=== PATIENT | male | born 1955 | race Caucasian/White ===

== ENCOUNTER 2017-06-03 09:12 | Outpatient (RCR) | payer OTHER | END 2017-06-03 09:58 | disposition home or self-care (01) | PROVIDERS: ATTEND Neurological Surgery | DX: M51.16 Intervertebral disc disorders with radiculopathy, lumbar region (principal) ==

== ENCOUNTER 2022-12-20 10:45 | Inpatient (IN) | payer MEDICARE ==
[~2022-12-20] VITALS: Ht 182 cm; Wt 129.0 kg
[2022-12-20] MEDS ORDERED: morphine INJ 10 MG/ML 1ML (SYR OR VIAL) IV STA (10:55)
--- NOTE | 2022-12-20 10:57 | ED Chest Pain ---
General Chief Complaint: Chest Pain Stated Complaint: CHEST PAINS History of Present Illness Date Seen by Provider: Dec 20, 2022 Time Seen by Provider: 10:50 Initial Comments 67-year-old male presents to the emergency department today for chest pain. Pain is in his left anterior chest and up into his left jaw associate with diaphoresis and nausea. 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 He had acute onset of chest pain and got immediately diaphoretic. He states he since had several bouts of nausea. No cardiac history. No recent illness. He does have high blood pressure, however cholesterol and takes metformin for diabetes mellitus. In route via EMS they report his EKG was sinus bradycardia. He was given 324 of aspirin chewable and nitroglycerin x1 which did not really help with his pain at all. On arrival he rates his pain 7/10 and is diaphoretic. All other systems reviewed and negative except documented per HPI. Voice recognition software was used to help create this chart Allergies and Home Medications Allergies Coded Allergies: morphine (Verified Allergy, Severe, HEART STOPS, 12/20/22) Patient Home Medication List Home Medication List Reviewed: Yes Acetaminophen (Tylenol Extra Strength) 500 Mg Tablet, 1,000 MG PO Q8H PRN for PAIN-MILD (1-4), (Reported) Entered as Reported by: FRANCO COSBY on 12/20/221507 Last Action: Held Albuterol Sulfate (Ventolin Hfa) 90 Mcg Hfa.aer.ad, 2 PUFF INH Q6H PRN for SHORT NESS OF BREATH, (Reported) Entered as Reported by: FRANCO COSBY on 12/20/221505 Last Action: Held Amoxicillin/Potassium Clav (Amox Tr-K Clv 875-125 mg Tab) 875 Mg-125 Mg Tablet, 1 EA PO BID, (Reported) Entered as Reported by: FRANCO COSBY on 12/20/22 150 Last Action: Reviewed Ascorbate Calcium (Vitamin C) 500 Mg Tablet, 500 MG PO DAILY, (Reported) Entered as Reported by: FRANCO COSBY on 12/20/22 150 Last Action: Held Budesonide (Budesonide) 0.5 Mg/2 Ml Ampul.neb, 2 ML NEB BID, (Reported) Entered as Reported by: FRANCO COSBY on 12/20/22 1530 Last Action: Reviewed Carisoprodol (Carisoprodol) 350 Mg Tablet, 350 MG PO DAILY PRN for MUSCLE SPASMS, (Reported) Entered as Reported by: FRANCO COSBY on 12/20/22 150 Last Action: Held Ergocalciferol (Vitamin D2) (Vitamin D2) 1,250 Mcg (71885 Unit) Capsule, 1,250 MCG PO EVERY 72 HOURS, (Reported) Entered as Reported by: FRANCO COSBY on 12/20/22 150 Last Action: Held Escitalopram Oxalate (Escitalopram Oxalate) 20 Mg Tablet, 20 MG PO DAILY, (Reported) Entered as Reported by: FRANCO COSBY on 12/20/221505 Last Action: Converted Formoterol Fumarate (Perforomist) 20 Mcg/2 Ml Vial.neb, 20 MCG IH BID, (Reported) Entered as Reported by: FRANCO COSBY on 12/21/22 101 Last Action: Reviewed Guaifenesin (Mucinex) 600 Mg Tab.er.12h, 600 MG PO Q12H PRN for CONGESTION, (Reported) Entered as Reported by: FRANCO COSBY on 12/20/221507 Last Action: Continued Loratadine (Claritin) 10 Mg Tablet, 10 MG PO DAILY PRN for ALLERGY SYMPTOMS, (Reported) Entered as Reported by: FRANCO COSBY on 12/20/221507 Last Action: Continued Meloxicam (Meloxicam) 7.5 Mg Tablet, 7.5 MG PO BID, (Reported) Entered as Reported by: FRANCO COSBY on 12/20/221505 Last Action: Continued Metformin HCl (Metformin HCl ER) 750 Mg Tab.er.24h, 750 MG PO DAILY, (Reported) Entered as Reported by: FRANCO COSBY on 12/20/221505 Last Action: Held Multivits,Ca,Min/Iron/FA/Lycop (Centrum Men's Tablet) 8 Mg Iron-200 Mcg-600 Mcg Tablet, 1 EACH PO DAILY, (Reported) Entered as Reported by: FRANCO COSBY on 12/20/221507 Last Action: Held Revefenacin (Yupelri) 175 Mcg/3 Ml Vial.neb, 175 MCG IH HS, (Reported) Entered as Reported by: FRANCO COSBY on 12/21/22 1015 Last Action: Reviewed Testosterone Cypionate (Testosterone Cypionate) 200 Mg/Ml Vial, 1 ML IM EVERY 10 DAYS, (Reported) Entered as Reported by: FRANCO COSBY on 12/20/22 1506 Last Action: Held Review of Systems Review of Systems Constitutional: weakness Physical Exam Vital Signs Vital Signs - First Documented 12/20/22 10:47 Temp 36.6 Pulse 64 Resp 20 B/P (MAP) 133/71 (91) Pulse Ox 96 O2 Delivery Room Air Capillary Refill : Height, Weight, BMI Height: '" Weight: lbs. oz. kg; BMI Method: General Appearance: Other (Diaphoresis, appears acutely ill) HEENT: Normal ENT Inspection, Pharynx Normal Neck: Full Range of Motion, Non Tender, Supple Respiratory: Chest Non Tender, Lungs Clear, Normal Breath Sounds, No Accessory Muscle Use, No Respiratory Distress Cardiovascular: No Murmur, Normal Peripheral Pulses, Bradycardia Gastrointestinal: Normal Bowel Sounds, No Organomegaly, No Pulsatile Mass, Non Tender, Soft Extremity: Normal Capillary Refill, Normal Inspection, Normal Range of Motion, Non Tender, No Calf Tenderness Neurologic/Psychiatric: Alert, Oriented x3, No Motor/Sensory Deficits Skin: Normal Color, Diaphoresis Critical Care Note Critical Care Total Time (minutes) 30 Progress/Results/Core Measures Results/Orders Lab Results Laboratory Tests Test 12/20/22 10:50 Range/Units White Blood Count 13.9 H 4.3-11.0 10^3/uL Red Blood Count 5.77 H 4.30-5.52 10^6/uL Hemoglobin 16.4 13.3-17.7 g/dL Hematocrit 49 40-54 % Mean Corpuscular Volume 85 80-99 fL Mean Corpuscular Hemoglobin 28 25-34 pg Mean Corpuscular Hemoglobin Concent 33 32-36 g/dL Red Cell Distribution Width 13.6 10.0-14.5 % Platelet Count 375 130-400 10^3/uL Mean Platelet Volume 9.1 9.0-12.2 fL Immature Granulocyte % (Auto) 2 % Neutrophils (%) (Auto) 61 42-75 % Lymphocytes (%) (Auto) 29 12-44 % Monocytes (%) (Auto) 5 0-12 % Eosinophils (%) (Auto) 2 0-10 % Basophils (%) (Auto) 2 0-10 % Neutrophils # (Auto) 8.5 H 1.8-7.8 10^3/uL Lymphocytes # (Auto) 4.0 1.0-4.0 10^3/uL Monocytes # (Auto) 0.7 0.0-1.0 10^3/uL Eosinophils # (Auto) 0.2 0.0-0.3 10^3/uL Basophils # (Auto) 0.3 H 0.0-0.1 10^3/uL Immature Granulocyte # (Auto) 0.3 H 0.0-0.1 10^3/uL Prothrombin Time 13.1 12.2-14.7 SEC INR Comment 1.0 0.8-1.4 Activated Partial Thromboplast Time 24 24-35 SEC Sodium Level 139 135-145 MMOL/L Potassium Level 3.9 3.6-5.0 MMOL/L Chloride Level 106 98-107 MMOL/L Carbon Dioxide Level 21 21-32 MMOL/L Anion Gap 12 5-14 MMOL/L Blood Urea Nitrogen 17 7-18 MG/DL Creatinine 0.91 0.60-1.30 MG/DL Estimat Glomerular Filtration Rate 92 BUN/Creatinine Ratio 19 Glucose Level 133 H 70-105 MG/DL Calcium Level 9.7 8.5-10.1 MG/DL Corrected Calcium 8.5-10.1 MG/DL Magnesium Level 2.0 1.6-2.4 MG/DL Total Bilirubin 0.4 0.1-1.0 MG/DL Aspartate Amino Transf (AST/SGOT) 22 5-34 U/L Alanine Aminotransferase (ALT/SGPT) 25 0-55 U/L Alkaline Phosphatase 58 40-136 U/L Myoglobin 42.7 10.0-92.0 NG/ML Troponin I < 0.028 <0.028 NG/ML Total Protein 7.4 6.4-8.2 GM/DL Albumin 4.6 H 3.2-4.5 GM/DL My Orders Orders - ANA LENZ DO Cbc With Automated Diff (12/20/22 10:55) Magnesium (12/20/22 10:55) Chest 1 View, Ap/Pa Only (12/20/22 10:55) Comprehensive Metabolic Panel (12/20/22 10:55) Myoglobin Serum (12/20/22 10:55) Protime With Inr (12/20/22 10:55) Partial Thromboplastin Time (12/20/22 10:55) O2 (12/20/22 10:55) Ed Iv/Invasive Line Start (12/20/22 10:55) Troponin I Toña (12/20/22 10:55) Heparin Injection (Heparin Injection) (12/20/22 11:00) Morphine Injection (Morphine Injection (12/20/22 10:55) Clopidogrel Tablet (Plavix Tablet) (12/20/22 11:00) Fentanyl Inj (Sublimaze Injection) (12/20/22 11:00) Vital Signs/I&O 12/20/22 10:47 Temp 36.6 Pulse 64 Resp 20 B/P (MAP) 133/71 (91) Pulse Ox 96 O2 Delivery Room Air Comment Sinus rhythm with a rate of 64 bpm. Prolonged QT, QTc with a left bundle branch block. ST elevations in lead III and aVF. Normal axis. Inferior STEMI Departure Communication (Admissions) 1055: attempted to c all Dr Toussaint, left voicemail to call back about a STEMI. medical laboratory technical officer has been activated. 1101: Dr Toussaint called back, notified of STEMI. Requests no further nitro as he was given prior by EMS. Also requests heparin bolus and 300po plavix. Patient taken to the Access Developer in stable but guarded condition Impression Primary Impression: STEMI (ST elevation myocardial infarction) Qualified Codes: I21.11 - ST elevation (STEMI) myocardial infarction involving right coronary artery Disposition: ADMITTED INPATIENT Condition: Stable Admissions Decision to Admit Reason: Admit from ER (General) Departure-Patient Inst. Referrals: JESE GORMAN MD (PCP) Primary Care Physician ANA LENZ DO Dec 20, 2022 10:57
[2022-12-20] MEDS ORDERED: CLOPIDOGREL 300 MG (PLAVIX) TABLET PO ONE ×2 (11:00→12:19)
[2022-12-20] MEDS ORDERED: fentaNYL INJ 100 MCG/2 ML AMP IVP ONE (11:00)
[2022-12-20 11:01] LABS: BASOPHILS # (AUTO) 0.3 10^3/uL (0.0-0.1); BASOPHILS % (AUTO) 2 % (0-10); EOSINOPHILS # (AUTO) 0.2 10^3/uL (0.0-0.3); EOSINOPHILS % (AUTO) 2 % (0-10); HEMATOCRIT 49 % (40-54); HEMOGLOBIN 16.4 g/dL (13.3-17.7); LYMPHOCYTES % (AUTO) 29 % (12-44); MEAN CORPUSCULAR HEMOGLOBIN 28 pg (25-34); MEAN CORPUSCULAR HGB CONC 33 g/dL (32-36); MEAN CORPUSCULAR VOLUME 85 fL (80-99); MEAN PLATELET VOLUME 9.1 fL (9.0-12.2); MONOCYTES # (AUTO) 0.7 10^3/uL (0.0-1.0); MONOCYTES % (AUTO) 5 % (0-12); NEUTROPHILS # (AUTO) 8.5 10^3/uL (1.8-7.8); NEUTROPHILS % (AUTO) 61 % (42-75); PLATELET COUNT 375 10^3/uL (130-400); WHITE BLOOD COUNT 13.9 10^3/uL (4.3-11.0)
[2022-12-20] MEDS ORDERED: LIDOCAINE 1% INJ 20 ML VIAL ONE (11:03)
[2022-12-20] MEDS ORDERED: MIDAZOLAM 5 MG/5 ML (VERSED) VIAL ONE (11:03)
[2022-12-20] MEDS ORDERED: HEParin 1000 UNIT/ML (10ML VIAL) FOR BOLUS ONE (11:03)
[2022-12-20] MEDS ORDERED: HEParin (CATH LAB) 2,000 ML IV ONE (11:03)
[2022-12-20] MEDS ORDERED: fentaNYL INJ 100 MCG/2 ML AMP ONE ×3 (11:03→14:53)
[2022-12-20] MEDS ORDERED: NS IV 1000 ML 1,000 ML ONE (11:04)
[2022-12-20] MEDS ORDERED: NITRO DRIP 25000 MCG/D5W 250 ML IV ONE (11:04)
[2022-12-20 11:08] LABS: PROTHROMBIN TIME PATIENT 13.1 SEC (12.2-14.7)
[2022-12-20 11:17] LABS: ALBUMIN 4.6 GM/DL (3.2-4.5); CHLORIDE 106 MMOL/L (98-107); POTASSIUM 3.9 MMOL/L (3.6-5.0); SODIUM 139 MMOL/L (135-145)
[2022-12-20 11:18] LABS: CALCIUM 9.7 MG/DL (8.5-10.1)
[2022-12-20 11:19] LABS: GLUCOSE 133 MG/DL (70-105); TOTAL PROTEIN 7.4 GM/DL (6.4-8.2)
[2022-12-20 11:20] LABS: CARBON DIOXIDE 21 MMOL/L (21-32)
--- NOTE | 2022-12-20 11:20 | Diagnostic Imaging Report ---
HISTORY: Chest pain TECHNIQUE: Frontal view of the chest. COMPARISON: None FINDINGS: Lung volumes are mildly large. No consolidation is seen. There is no pleural effusion or pneumothorax. The cardiac silhouette is upper normal in size. There are calcified lymph nodes from old granulomatous disease. IMPRESSION: 1. No acute pulmonary abnormality. Dictated by: Dictated on workstation # [id number]
[2022-12-20 11:21] LABS: BILIRUBIN,TOTAL 0.4 MG/DL (0.1-1.0)
[2022-12-20 11:22] LABS: ALKALINE PHOSPHATASE 58 U/L (40-136)
[2022-12-20 11:23] LABS: CREATININE SERUM 0.91 MG/DL (0.60-1.30); GFR ESTIMATED 92
[2022-12-20] MEDS ORDERED: EPTIFIBATIDE BOLUS 20 ML IV ONE (11:23)
[2022-12-20] MEDS ORDERED: EPTIFIBATIDE DRIP 100 ML IV ONE (11:23)
[2022-12-20 11:24] LABS: BUN/CREATININE RATIO 19
[2022-12-20 11:26] LABS: ALANINE AMINOTRANSFERASE 25 U/L (0-55)
[2022-12-20] MEDS ORDERED: NS (IVPB) 250 ML ONE (11:35)
[2022-12-20] MEDS ORDERED: niCARdipine IV PYXIS DRIP KIT = 50 MG X 2 VIALS ONE (11:35)
[2022-12-20] MEDS ORDERED: ACETAMINOPHEN 325 MG TABLET PO PRN (12:30)
[2022-12-20] MEDS ORDERED: PATIENT MAY USE OWN MEDS, ALL PO SCH (12:30)
--- NOTE | 2022-12-20 12:52 | Cardiac Cath Report ---
CARDIAC CATHETERIZATION DATE OF PROCEDURE: 12/20/22 INDICATION: Ac Inf Wall STEMI HISTORY: The patient is a 67 year old male DM II, htn, hyperlipidemia, and ABDOULAYE who presented with acute inf wall STEMI PROCEDURES PERFORMED: 1. Card cath and coronary angio 2. Primary PCI to RCA (PTCA followed by [facility]) PROCEDURE DESCRIPTION: After informed consent and in the fasting state, left heart catheterization was performed through the R femoral artery utilizing a 6 Beninese system by percutaneous approach. Due to significant tortuosity in the iliofemoral system, we used a 45 cm 6F sheath. PCI of RCA was performed first. Diagnostic coronary angio and left heart cath were then carried out. 6F JR 4 guide was used for PCI. Standard Brodie catheters were utilized for the diagnostic portion of the procedure. All catheters were exchanged over a guidewire. PCI to Dominant RCA Guide: 6F JR4 Wire: Choice Floppy Balloon: 2.0 x 30 mm in the distal RCA Stent: Skypoint 3.0 x 18 in the distal RCA Pre-intervention: 100% distal with LORENZO 0 flow Post-intervention: 0% residual with LORENZO 3 flow HEMODYNAMICS: LVEDP 15 mmHg, no significant pressure gradient on pull back across the aortic valve LV ANGIOGRAPHY: basal inferior hypokinesis, LVEF 50% CORONARY ANGIOGRAPHY: Cor calcium present Left main coronary artery: No significant obstructive disease Left anterior descending coronary artery: 50-60% mid LAD, 50-60% prox D1 Left circumflex coronary artery: Mild plaque Right coronary artery: Dominant. 100% distal with LORENZO 0 flow treated with Skypoint 3.0 x 18 YUMIKO deployed at 18 atmospheres with 0% residual and LORENZO 3 flow. Very distal RCA has 50% stenosis IMPRESSION: 1. CAD: LAD 50-60% mid LAD, 50-60% prox D1, mild plaque LCx, RCA 100% distal with LORENZO 0 flow treated with Skypoint 3.0 x 18 YUMIKO deployed at 18 atmospheres with 0% residual and LORENZO 3 flow; very distal RCA has 50% stenosis 2. Basal inferior hypokinesis, LVEF 50%, LVEDP 15 mmHg MENDEZ CALLEJAS MD FACP [facility] Dec 20, 2022 12:52
--- NOTE | 2022-12-20 13:03 | Cardiology History & Physical ---
HPI-Cardiology Cardiology H&P Date of Admission Primary Care Physician Admitting Physician: Elisa Toussaint MD, MA [facility] Attending Physician: Elisa Toussaint MD, MA [facility] Attending Physician Justin Zepeda MD Consulting Physician HPI 67 yo man with multiple cor risk factors (DM II, htn, hl) who presented with sudden onset of midsternal chest pain, severe, radiating to shoulders and neck, associated with diaphoresis and some shortness of breath, never experienced before, w/o aggravating or relieving factors, diagnosed in the ER as acute inf wall STEMI. We proceeded with emergency cath/PCI after having spoken with the patient Review of Systems-Cardiology Review of Systems Constitutional: No weight loss, No weight gain Eyes: No vision change Ears/Nose/Throat: No ear discharge, No nasal drainage, No recent hearing loss Respiratory: As described under HPI Cardiovascular: As described under HPI Gastrointestinal: No diarrhea, No nausea, No vomiting Genitourinary: No dysuria, No hematuria, No urine frequency changes Musculoskeletal: As describe under HPI; No back pain, No joint pain Skin: No rash, No ulcerations Psychiatric/Neurological: No seizure, No focal weakness, No syncope Hematologic: No bleeding abnormalities MZO-[id number]-Cgxple Hx Patient Social History Have you traveled recently?: No Alcohol Use?: No Past Medical History PMH As described under Assessment. Family Medical History Family Medical History: Does not report fam h/o premature CAD Allergies and Home Medications Allergies Coded Allergies: morphine (Verified Allergy, Severe, HEART STOPS, 12/20/22) Patient Home Medication List Home Medication List Reviewed: Yes Physical Exam-Cardiology Physical Exam Vital Signs/I&O 12/20/22 12/20/22 12/20/22 10:47 11:04 11:12 Temp 36.6 36.6 36.6 Pulse 64 53 Resp 20 20 B/P (MAP) 133/71 (91) 115/77 Pulse Ox 96 96 O2 Delivery Room Air Room Air Capillary Refill : Less Than 3 Seconds Constitutional: AAO x 3, well-developed, well-nourished HEENT: EOMI, hearing is well preserved; No xanthelasmas are seen Neck: carotid pulses are 2 + bilaterally, with good upstrokes Respiratory: No accessory muscle use; chest expansion is symmetric, chest is bilaterally symmetric, other (fair to good, bilateral air entry) Cardiovascular: regular rate-rhythm, S1 and S2, systolic murmur (soft EVAN at card base) Gastrointestinal: No tender; soft; No guarding, No rebound; audible bowel sounds Extremities: No clubbing, No cyanosis, No significant edema Neurologic/Psychiatric: oriented x 3, other (moves all limbs equally) Skin: No rash on exposed areas, No ulcerations on exposed areas Data Review Labs Laboratory Tests 12/20/22 10:50: White Blood Count 13.9H, Red Blood Count 5.77H, Hemoglobin 16.4, Hematocrit 49, Mean Corpuscular Volume 85, Mean Corpuscular Hemoglobin 28, Mean Corpuscular Hemoglobin Concent 33, Red Cell Distribution Width 13.6, Platelet Count 375, Mean Platelet Volume 9.1, Immature Granulocyte % (Auto) 2, Neutrophils (%) (Auto) 61, Lymphocytes (%) (Auto) 29, Monocytes (%) (Auto) 5, Eosinophils (%) (Auto) 2, Basophils (%) (Auto) 2, Neutrophils # (Auto) 8.5H, Lymphocytes # (Auto) 4.0, Monocytes # (Auto) 0.7, Eosinophils # (Auto) 0.2, Basophils # (Auto) 0.3H, Immature Granulocyte # (Auto) 0.3H, Prothrombin Time 13.1, INR Comment 1.0, Activated Partial Thromboplast Time 24, Sodium Level 139, Potassium Level 3.9, Chloride Level 106, Carbon Dioxide Level 21, Anion Gap 12, Blood Urea Nitrogen 17, Creatinine 0.91, Estimat Glomerular Filtration Rate 92, BUN/Creatinine Ratio 19, Glucose Level 133H, Calcium Level 9.7, Corrected Calcium , Magnesium Level 2.0, Total Bilirubin 0.4, Aspartate Amino Transf (AST/SGOT) 22, Alanine Aminotransferase (ALT/SGPT) 25, Alkaline Phosphatase 58, Myoglobin 42.7, Troponin I < 0.028, Total Protein 7.4, Albumin 4.6H Laboratory Tests 12/20/22 10:50 A/P-Cardiology Assessment/Admission Diagnosis Ac inf wall STEMI treated with primary PCI (see below) CAD - LAD 50-60% mid LAD, 50-60% prox D1, mild plaque LCx, RCA 100% distal with LORENZO 0 flow treated with Skypoint 3.0 x 18 YUMIKO deployed at 18 atmospheres with 0% residual and LORENZO 3 flow; very distal RCA has 50% stenosis - Basal inferior hypokinesis, LVEF 50%, LVEDP 15 mmHg DM II BMI approx 39 and obesity-hypovent and ABDOULAYE Hyperlipidemia Hypertension Admission Status: Inpatient Order (span 2 midnights) Reason for Inpatient Admission: Ac STEMI Discussion and Recomendations * DAPT * BB * MELO-inhibitor * Statin * Management of DM II and other medical issues by the Hospitalist service. I called Dr Solis and requested consult * Monitor labs * I discussed his CV issues with Mr Cardenas and his family Clinical Quality Measures AMI/AHF: ASA po Prior to arrival: Yes ELISA TOUSSAINT MD FACP [facility]AC [facility] Dec 20, 2022 13:03
[2022-12-20] MEDS ORDERED: meTOproloL SUCCINATE 50 MG (TOPROL XL) TAB PO NR (13:30)
[2022-12-20] MEDS ORDERED: lisINopril 5 MG (PRINIVIL) TABLET PO NR (13:30)
--- NOTE | 2022-12-20 14:09 | Tele-ICU Consult ---
History of Present Illness History of Present Illness Date Seen by Provider: Dec 20, 2022 Time Seen by Provider: 14:06 History of Present Illness eICU Critical Care Consult Service provided via interactive audio and video telecomJobinasecond E-CARE system to a patient admitted to ICU bed in [facility]. Patient is seen today due to persistent need of ICU care Available chart/ vitals / labs / Images reviewed Video assessment done using teleICU camera, rest of exam as per RN 67 yo M admitted with Inf Wall STEMI, cc of SOB, CP. diaphoresis, PMH DM, obetisy, ABDOULAYE/OHS, HLD, HTN Went to CCL has multiple vessel disease with 100% occlusion in RCA, had PCTA with YUMIKO Tropoin is normal, EKG shows LBBB Allergies and Home Medications Allergies Coded Allergies: morphine (Verified Allergy, Severe, HEART STOPS, 12/20/22) Past Medical/Social/Family Hx Patient Social History Tobacco Use?: No Smoking Status: Never a Smoker Use of E-Cig and/or Vaping dev: No E-Cig and/or Vaping Freq: Never a User Substance use?: No Alcohol Use?: No Pt stated abuse/neglect: No Immunizations Up To Date Influenza Vaccine Up-to-Date: Yes; Up-to-Date Current Status Advance Directives: No Communicates: Verbally Primary Language: Tongan Preferred Spoken Language: Tongan Is interpretation needed?: No Implanted or Applied Medical D: CPAP Review of Systems Constitutional: see HPI EENTM: see HPI Respiratory: see HPI Cardiovascular: see HPI Gastrointestinal: see HPI Genitourinary: see HPI Musculoskeletal: see HPI Skin: see HPI Psychiatric/Neurological: See HPI Focused Exam Height, Weight, BMI Height: '" Weight: lbs. oz. kg; 38.94 BMI Method: Exam Exam Patient acknowledged, consented, and participated in this virtual visit which was conducted using real time audio/video Vital Signs Date Time Temp Pulse Resp B/P (MAP) Pulse Ox O2 Delivery O2 Flow Rate FiO2 12/20/22 13:02 60 16 119/69 (86) 97 Room Air 12/20/22 13:00 Room Air 12/20/22 11:12 36.6 53 20 115/77 96 Room Air 12/20/22 11:04 36.6 12/20/22 10:47 36.6 64 20 133/71 (91) 96 Room Air Height & Weight Height: '" Weight: lbs. oz. kg; 38.94 BMI Method: General Appearance: Other (Diaphoresis, appears acutely ill) HEENT: Normal ENT Inspection, Pharynx Normal Neck: Full Range of Motion, Non Tender, Supple Respiratory: Chest Non Tender, Lungs Clear, Normal Breath Sounds, No Accessory Muscle Use, No Respiratory Distress Cardiovascular: No Murmur, Normal Peripheral Pulses, Bradycardia Capillary Refill: Less Than 3 Seconds Gastrointestinal: normal bowel sounds, non tender, soft Extremity: Normal Capillary Refill, Normal Inspection, Normal Range of Motion, Non Tender, No Calf Tenderness, No Pedal Edema Neurologic/Psychiatric: Alert, Oriented x3, No Motor/Sensory Deficits Skin: Normal Color, Diaphoresis Results Lab Laboratory Tests 12/20/22 10:50 Assessment/Plan Assessment/Plan Inf Wall STEMI, s/p PCTA, YUMIKO continue DPT, beta nelia, statin cardiology to follow ABDOULAYE, with Hb 16.4 most likely has severe ABDOULAYE with nocturnal hypoxemia and reactive polycythemia, Pt does wear BiPAP at night which makes be wonder if he stillis having oxygen desturations Critical Care: Critically Ill Patient Time spent with patient (mins): 25 VIRAL CRABTREE MD Dec 20, 2022 14:09
[2022-12-20] MEDS: NS IV 1000 ML 1,000 ML IV SCH (14:30)
[2022-12-20] MEDS ORDERED: ATROPINE INJECTION 1 MG/10 ML SYR (ABBOTT) ONE (14:57)
[2022-12-20] MEDS ORDERED: fentaNYL INJ 100 MCG/2 ML AMP IVP PRN (15:00)
[2022-12-20] MEDS ORDERED: PANTOPRAZOLE 40 MG (PROTONIX) VIAL IV NR (15:00)
[2022-12-20] MEDS ORDERED: AMOX1TAB12 PO (15:06)
[2022-12-20] MEDS ORDERED: ERGO1250 PO (15:06)
[2022-12-20] MEDS ORDERED: ESCI20TA39 PO (15:06)
[2022-12-20] MEDS ORDERED: MELO7.5T46 PO (15:06)
[2022-12-20] MEDS ORDERED: CARI350T27 PO (15:06)
[2022-12-20] MEDS ORDERED: ALBU18HF2 INH (15:06)
[2022-12-20] MEDS ORDERED: TEST200V21 IM (15:06)
[2022-12-20] MEDS ORDERED: METF750T45 PO (15:06)
[2022-12-20] MEDS ORDERED: ASCO-262 PO (15:08)
[2022-12-20] MEDS ORDERED: GUAI600T43 PO (15:08)
[2022-12-20] MEDS ORDERED: MULT-1030 PO (15:08)
[2022-12-20] MEDS ORDERED: LORA10TA76 PO (15:08)
[2022-12-20] MEDS ORDERED: ACET-2267 PO (15:08)
[2022-12-20] MEDS ORDERED: BUDE0.5A NEB (15:30)
[2022-12-20] MEDS: inSUlin ASPART (NovoLOG) 1 UNIT/0.01 ML (CHARGE PER UNIT) SC SCH ×2 (16:08→21:05)
[2022-12-20] MEDS: TICAGRELOR 90 MG TABLET (BRILINTA) PO SCH (21:08)
[2022-12-21] MEDS: NS IV 1000 ML 1,000 ML IV SCH ×2 (00:08→08:37)
[2022-12-21 05:45] LABS: BASOPHILS # (AUTO) 0.1 10^3/uL (0.0-0.1); BASOPHILS % (AUTO) 1 % (0-10); EOSINOPHILS # (AUTO) 0.1 10^3/uL (0.0-0.3); EOSINOPHILS % (AUTO) 1 % (0-10); HEMATOCRIT 45 % (40-54); HEMOGLOBIN 14.5 g/dL (13.3-17.7); LYMPHOCYTES # (AUTO) 1.5 10^3/uL (1.0-4.0); LYMPHOCYTES % (AUTO) 14 % (12-44); MEAN CORPUSCULAR HEMOGLOBIN 28 pg (25-34); MEAN CORPUSCULAR HGB CONC 33 g/dL (32-36); MEAN CORPUSCULAR VOLUME 85 fL (80-99); MEAN PLATELET VOLUME 9.2 fL (9.0-12.2); MONOCYTES # (AUTO) 0.6 10^3/uL (0.0-1.0); MONOCYTES % (AUTO) 5 % (0-12); NEUTROPHILS # (AUTO) 8.2 10^3/uL (1.8-7.8); NEUTROPHILS % (AUTO) 77 % (42-75); PLATELET COUNT 283 10^3/uL (130-400); WHITE BLOOD COUNT 10.6 10^3/uL (4.3-11.0)
[2022-12-21 06:00] LABS: ALBUMIN 3.7 GM/DL (3.2-4.5); BILIRUBIN,TOTAL 0.6 MG/DL (0.1-1.0); CALCIUM 8.5 MG/DL (8.5-10.1); CREATININE SERUM 0.74 MG/DL (0.60-1.30); MAGNESIUM 1.9 MG/DL (1.6-2.4); POTASSIUM 3.8 MMOL/L (3.6-5.0); TOTAL PROTEIN 5.8 GM/DL (6.4-8.2)
[2022-12-21] MEDS: inSUlin ASPART (NovoLOG) 1 UNIT/0.01 ML (CHARGE PER UNIT) SC SCH ×4 (06:20→20:40)
--- NOTE | 2022-12-21 08:22 | Progress Note - Cardiology ---
Cardiology SOAP Progress Note Subjective: Lying in bed Echocardiogram in progress No c/o CP, SOB, palpitations No c/o right groin discomfort Objective: I&O/Vital Signs 12/21/22 12/21/22 12/21/22 12/21/22 20:00 20:00 21:12 23:57 Temp 36.6 Pulse 64 58 Resp 12 14 B/P (MAP) 133/74 (93) 127/77 (94) Pulse Ox 97 97 97 98 O2 Delivery Room Air Room Air Room Air NIV CPAP 12/22/22 12/22/22 12/22/22 12/22/22 00:29 01:00 04:17 07:00 Temp 36.7 Pulse 60 62 56 Resp 16 14 B/P (MAP) 128/84 (99) 143/83 (103) Pulse Ox 96 96 94 O2 Delivery NIV CPAP NIV CPAP NIV CPAP 12/22/22 07:21 Pulse 51 12/22/22 00:00 Intake Total 1750 ml Output Total 1250 ml Balance 500 ml Side: right Groin site without hematoma: Yes Condition: DP/PT pulses palpable, extremity w/d/p Bruising: mild bruising Constitutional: AAO x 3, well-developed, well-nourished Respiratory: No accessory muscle use; chest expansion is symmetric, chest is bilaterally symmetric, other (fair to good, bilateral air entry) Cardiovascular: regular rate-rhythm, S1 and S2, systolic murmur (soft EVAN at card base) Gastrointestional: No tender; soft; No guarding, No rebound; audible bowel sounds Extremities: No clubbing, No cyanosis, No significant edema Neurologic/Psychiatric: oriented x 3, other (moves all limbs equally) Skin: No rash on exposed areas, No ulcerations on exposed areas Results/Procedures: Labs Laboratory Tests 12/21/22 11:50: Glucometer 96 12/21/22 20:39: Glucometer 102 12/22/22 05:02: White Blood Count 10.1, Red Blood Count 5.36, Hemoglobin 14.9, Hematocrit 46, Mean Corpuscular Volume 85, Mean Corpuscular Hemoglobin 28, Mean Corpuscular Hemoglobin Concent 33, Red Cell Distribution Width 13.7, Platelet Count 280, Mean Platelet Volume 9.1, Sodium Level 138, Potassium Level 3.7, Chloride Level 109H, Carbon Dioxide Level 21, Anion Gap 8, Blood Urea Nitrogen 16, Creatinine 0.77, Estimat Glomerular Filtration Rate 98, BUN/Creatinine Ratio 21, Glucose Level 98, Calcium Level 8.8 Microbiology 12/20/22 MRSA Screen - Final, Complete MRSA not isolated A/P: Assessment: Ac inf wall STEMI treated with primary PCI (see below) CAD - LAD 50-60% mid LAD, 50-60% prox D1, mild plaque LCx, RCA 100% distal with LORENZO 0 flow treated with Skypoint 3.0 x 18 YUMIKO deployed at 18 atmospheres with 0% residual and LORENZO 3 flow; very distal RCA has 50% stenosis - Basal inferior hypokinesis, LVEF 50%, LVEDP 15 mmHg DM II BMI approx 39 and obesity-hypovent and ABDOULAYE Hyperlipidemia - statin tx Hypertension Plan: * Continue DAPT, BB, MELO-inhibitor and Statin * Management of DM II and other medical issues by the Hospitalist service - Dr. Solis consulted * Monitor labs * Echocardiogram in progress * Increase activity today Clinical Quality Measures AMI/AHF: ASA po Prior to arrival: Yes ELO RODRIGUEZ Dec 21, 2022 08:22
[2022-12-21] MEDS: PANTOPRAZOLE 40 MG (PROTONIX) TAB PO SCH (08:39)
[2022-12-21] MEDS: lisINopril 5 MG (PRINIVIL) TABLET PO SCH (08:39)
[2022-12-21] MEDS: meTOproloL SUCCINATE 50 MG (TOPROL XL) TAB PO SCH (08:39)
[2022-12-21] MEDS: TICAGRELOR 90 MG TABLET (BRILINTA) PO SCH ×2 (08:39→20:27)
[2022-12-21] MEDS: ASPIRIN 81 MG CHEW (CHILDREN'S ASA) PO SCH (08:39)
[2022-12-21] MEDS ORDERED: guaiFENesin (MUCINEX) 600 MG TAB PO PRN (09:45)
[2022-12-21] MEDS ORDERED: LORATADINE (CLARITIN) 10 MG TAB PO PRN (09:45)
[2022-12-21] MEDS ORDERED: REVE175V IH (10:15)
[2022-12-21] MEDS ORDERED: FORM20VI IH (10:15)
--- NOTE | 2022-12-21 15:25 | Consultation - Hospitalist ---
HPI History of Present Illness: HPI/Chief Complaint Paul Cardenas is a 67 year old male with PMH HTN, T2DM, HLD, obesity, who presented with chest pain and was admitted with STEMI. The pain was radiating to his jaw. He was diaphoretic and nauseous. Cardiology performed emergent left heart catheterization and he was found to have 100% blockage of the right coronary artery and a stent was placed. Upon my exam, he is having no further symptoms. He denies chest pain. He denies shortness of breath. He has been up walking. He has been eating and drinking. He has no complaints. Source: patient Exam Limitations: no limitations Date Seen 12/21/22 Attending Physician Justin Zepeda MD PCP Admitting Physician: Elisa Toussaint MD [facility] Attending Physician: Elisa Toussaint MD [facility] Referring Physician Date of Admission Dec 20, 2022 at 12:16 Home Medications & Allergies Home Medications Reviewed patient Home Medication Reconciliation performed by pharmacy medication reconciliations cardiology technician and/or nursing. Patients Allergies have been reviewed. Allergies Allergies Coded Allergies morphine (Verified Allergy, Severe, HEART STOPS, 12/20/22) Past Ozpsado-Liyjec-Oupuao Hx Patient Social History Tobacco Use?: No Smoking Status: Never a Smoker Use of E-Cig and/or Vaping dev: No Use of E-Cig and/or Vaping Rufino: Never a User Substance use?: No Alcohol Use?: No Pt feels they are or have been: No Immunizations Up To Date Date of Influenza Vaccine: Jul 22, 2022 Current Status Advance Directives: No Communicates: Verbally Primary Language: Egyptian Preferred Spoken Language: Egyptian Is interpretation needed?: No Implanted or Applied Medical D: CPAP Past Medical History Coronary Artery Disease, High Cholesterol, Hypertension Diabetes, Non-Insulin dep Family Medical History No Pertinent Family Hx Review of Systems Constitutional: diaphoresis Respiratory: no symptoms reported Cardiovascular: chest pain Gastrointestinal: nausea Physical Exam Physical Exam Vital Signs Vital Signs - First Documented 12/20/22 10:47 Temp 36.6 Pulse 64 Resp 20 B/P (MAP) 133/71 (91) Pulse Ox 96 O2 Delivery Room Air Capillary Refill : Less Than 3 Seconds Height, Weight, BMI Height: '" Weight: lbs. oz. kg; 38.94 BMI Method: General Appearance: No Apparent Distress, Obese, Other (Diaphoresis, appears acutely ill) HEENT: PERRL/EOMI, Pharynx Normal Neck: Normal Inspection, Supple Respiratory: Lungs Clear, Normal Breath Sounds, No Respiratory Distress Cardiovascular: Regular Rate, Rhythm, No Edema, No Murmur Gastrointestinal: Normal Bowel Sounds, Non Tender, Soft Extremity: Normal Inspection, Non Tender, No Pedal Edema Neurologic/Psychiatric: Alert, Oriented x3, No Motor/Sensory Deficits, Normal Mood/Affect Skin: Normal Color, Warm/Dry Results Results/Procedures Labs Laboratory Tests 12/20/22 10:50 12/21/22 04:52 12/21/22 05:03 Patient resulted labs reviewed. Imaging: Reviewed Imaging Report Assessment/Plan Assessment and Plan Assess & Plan/Chief Complaint STEMI CAD HTN HLD Obesity T2DM Cardiology primary s/p left heart cath with stent to RCA 12/20 ASA and Brilinta Statin Lisinopril Toprol Sliding scale insulin Critical Care Critically Ill Patient Diagnosis/Problems Diagnosis/Problems (1) STEMI (ST elevation myocardial infarction) Status: Acute Qualifiers: Involved coronary artery: right coronary artery Qualified Codes: I21.11 - ST elevation (STEMI) myocardial infarction involving right coronary artery (2) CAD (coronary artery disease) Status: Acute (3) T2DM (type 2 diabetes mellitus) Status: Acute (4) HTN (hypertension) Status: Acute (5) HLD (hyperlipidemia) Status: Acute (6) Obesity Status: Acute Clinical Quality Measures AMI/AHF: ASA po Prior to arrival: Yes ARANZA TUCKER MD Dec 21, 2022 15:25
[2022-12-21] MEDS ORDERED: ENOXAPARIN 40 MG/0.4 ML (LOVENOX) SYR SC SCH (17:00)
--- NOTE | 2022-12-21 17:09 | Progress Note - Cardiology ---
Cardiology SOAP Progress Note Subjective: No cp or palp or syncope No shortness of breath at rest Gen malaise is improving No focal weakness No n/v/d No leg or groin discomfort Objective: I&O/Vital Signs 12/21/22 12/21/22 12/21/22 12/21/22 06:00 07:00 07:00 08:00 Pulse 63 71 71 Resp 8 9 B/P (MAP) 117/69 (85) 141/81 (101) Pulse Ox 99 98 94 O2 Delivery NIV CPAP NIV CPAP Room Air 12/21/22 12/21/22 12/21/22 12/21/22 08:00 09:00 10:00 11:00 Pulse 68 65 60 59 Resp 19 18 15 16 B/P (MAP) 130/81 (97) 139/84 (102) 127/93 (104) Pulse Ox 96 95 95 95 O2 Delivery NIV CPAP Room Air Room Air Room Air 12/21/22 12/21/22 12/21/22 12/21/22 11:48 12:00 12:20 13:00 Pulse 61 67 71 Resp 23 14 B/P (MAP) 157/91 (113) 127/100 (109) Pulse Ox 94 96 95 O2 Delivery Room Air Room Air Room Air 12/21/22 12/21/22 12/21/22 14:00 15:00 16:00 Pulse 64 59 64 Resp 14 19 21 B/P (MAP) 130/76 (94) 127/73 (91) 125/76 (92) Pulse Ox 92 93 95 O2 Delivery Room Air Room Air Room Air 12/21/22 00:00 Intake Total 840 ml Output Total 950 ml Balance -110 ml Side: right Groin site without hematoma: Yes Condition: DP/PT pulses palpable, extremity w/d/p Bruising: mild bruising Constitutional: AAO x 3, well-developed, well-nourished Respiratory: No accessory muscle use; chest expansion is symmetric, chest is bilaterally symmetric, other (fair to good, bilateral air entry) Cardiovascular: regular rate-rhythm, S1 and S2, systolic murmur (soft EVAN at card base) Gastrointestional: No tender; soft; No guarding, No rebound; audible bowel sounds Extremities: No clubbing, No cyanosis, No significant edema Neurologic/Psychiatric: oriented x 3, other (moves all limbs equally) Skin: No rash on exposed areas, No ulcerations on exposed areas Results/Procedures: Labs Laboratory Tests 12/20/22 20:52: Glucometer 128H 12/21/22 04:52: Sodium Level 137, Potassium Level 3.8, Chloride Level 108H, Carbon Dioxide Level 19L, Anion Gap 10, Blood Urea Nitrogen 14, Creatinine 0.74, Estimat Glomerular Filtration Rate 99, BUN/Creatinine Ratio 19, Glucose Level 100, Calcium Level 8.5, Corrected Calcium 8.7, Magnesium Level 1.9, Total Bilirubin 0.6, Aspartate Amino Transf (AST/SGOT) 26, Alanine Aminotransferase (ALT/SGPT) 20, Alkaline Phosphatase 46, Total Protein 5.8L, Albumin 3.7, Triglycerides Level 94, Cholesterol Level 150, LDL Cholesterol Direct 106, VLDL Cholesterol 19, HDL Cholesterol 29L, Thyroid Stimulating Hormone (TSH) 1.21 12/21/22 05:03: White Blood Count 10.6, Red Blood Count 5.21, Hemoglobin 14.5, Hematocrit 45, Mean Corpuscular Volume 85, Mean Corpuscular Hemoglobin 28, Mean Corpuscular Hemoglobin Concent 33, Red Cell Distribution Width 13.9, Platelet Count 283, Mean Platelet Volume 9.2, Immature Granulocyte % (Auto) 2, Neutrophils (%) (Auto) 77H, Lymphocytes (%) (Auto) 14, Monocytes (%) (Auto) 5, Eosinophils (%) (Auto) 1, Basophils (%) (Auto) 1, Neutrophils # (Auto) 8.2H, Lymphocytes # (Auto) 1.5, Monocytes # (Auto) 0.6, Eosinophils # (Auto) 0.1, Basophils # (Auto) 0.1, Immature Granulocyte # (Auto) 0.2H 12/21/22 11:50: Glucometer 96 Microbiology 12/20/22 MRSA Screen - Final, Complete MRSA not isolated Laboratory Tests 12/20/22 10:50 12/21/22 04:52 12/21/22 05:03 A/P: Assessment: Ac inf wall STEMI treated with primary PCI (see below) CAD - LAD 50-60% mid LAD, 50-60% prox D1, mild plaque LCx, RCA 100% distal with LORENZO 0 flow treated with Skypoint 3.0 x 18 YUMIKO deployed at 18 atmospheres with 0% residual and LORENZO 3 flow; very distal RCA has 50% stenosis - Basal inferior hypokinesis, LVEF 50%, LVEDP 15 mmHg DM II BMI approx 39 and obesity-hypovent and ABDOULAYE Hyperlipidemia - statin tx Hypertension Plan: * Continue DAPT, BB, MELO-inhibitor and Statin * Management of DM II and other medical issues by the Hospitalist service - Dr. Solis consulted * Monitor labs * Increase activity today * I discussed in detail with him his cath findings, interventions undertaken, and future treatment plan; also reviewed risk factor mod Clinical Quality Measures AMI/AHF: ASA po Prior to arrival: Yes MENDEZ CALLEJAS MD FACP FAC CCDS Dec 21, 2022 17:09
[2022-12-21] MEDS: MELOXICAM 7.5 MG (MOBIC) TABLET PO SCH (20:27)
[2022-12-21] MEDS ORDERED: RT-BUDESONIDE NEBS 0.5 MG/2ML (PULMICORT) AMP IH SCH (21:00)
[2022-12-22 05:14] LABS: HEMATOCRIT 46 % (40-54); HEMOGLOBIN 14.9 g/dL (13.3-17.7); MEAN CORPUSCULAR HEMOGLOBIN 28 pg (25-34); MEAN CORPUSCULAR HGB CONC 33 g/dL (32-36); MEAN CORPUSCULAR VOLUME 85 fL (80-99); MEAN PLATELET VOLUME 9.1 fL (9.0-12.2); PLATELET COUNT 280 10^3/uL (130-400); WHITE BLOOD COUNT 10.1 10^3/uL (4.3-11.0)
[2022-12-22 05:26] LABS: POTASSIUM 3.7 MMOL/L (3.6-5.0)
[2022-12-22 05:27] LABS: CALCIUM 8.8 MG/DL (8.5-10.1)
[2022-12-22 05:32] LABS: CREATININE SERUM 0.77 MG/DL (0.60-1.30)
[2022-12-22] MEDS: inSUlin ASPART (NovoLOG) 1 UNIT/0.01 ML (CHARGE PER UNIT) SC SCH (05:46)
[2022-12-22] MEDS: ASPIRIN 81 MG CHEW (CHILDREN'S ASA) PO SCH (08:18)
[2022-12-22] MEDS: MELOXICAM 7.5 MG (MOBIC) TABLET PO SCH (08:19)
[2022-12-22] MEDS: lisINopril 5 MG (PRINIVIL) TABLET PO SCH (08:19)
[2022-12-22] MEDS: TICAGRELOR 90 MG TABLET (BRILINTA) PO SCH (08:19)
[2022-12-22] MEDS: PANTOPRAZOLE 40 MG (PROTONIX) TAB PO SCH (08:19)
[2022-12-22] MEDS: meTOproloL SUCCINATE 50 MG (TOPROL XL) TAB PO SCH (08:19)
--- NOTE | 2022-12-22 08:52 | Progress Note - Cardiology ---
Cardiology SOAP Progress Note Subjective: Sitting up in bed He has been up walking and is able to do so without c/o No c/o CP, SOB, palpitations, syncope, near syncope No c/o right groin discomfort No c/o n/v/d Wants to go home Objective: I&O/Vital Signs Side: right Groin site without hematoma: Yes Condition: DP/PT pulses palpable, extremity w/d/p Bruising: mild bruising Constitutional: AAO x 3, well-developed, well-nourished Respiratory: No accessory muscle use; chest expansion is symmetric, chest is bilaterally symmetric, other (fair to good, bilateral air entry) Cardiovascular: regular rate-rhythm, S1 and S2, systolic murmur (soft EVAN at card base) Gastrointestional: No tender; soft; No guarding, No rebound; audible bowel sounds Extremities: No clubbing, No cyanosis, No significant edema Neurologic/Psychiatric: oriented x 3, other (moves all limbs equally) Skin: No rash on exposed areas, No ulcerations on exposed areas Results/Procedures: Labs Microbiology 12/20/22 MRSA Screen - Final, Complete MRSA not isolated A/P: Assessment: Ac inf wall STEMI treated with primary PCI (see below) CAD - LAD 50-60% mid LAD, 50-60% prox D1, mild plaque LCx, RCA 100% distal with LORENZO 0 flow treated with Skypoint 3.0 x 18 YUMIKO deployed at 18 atmospheres with 0% residual and LORENZO 3 flow; very distal RCA has 50% stenosis - Basal inferior hypokinesis, LVEF 50%, LVEDP 15 mmHg DM II BMI approx 39 and obesity-hypovent and ABDOULAYE Hyperlipidemia - statin tx Hypertension Plan: * Continue DAPT, BB, MELO-inhibitor and Statin * Management of DM II and other medical issues has been by the Hospitalist service * I discussed in detail with him his cath findings, interventions undertaken, and future treatment plan; also reviewed risk factor mod * Ok to discharge home today on current medication regimen * Out pt f/u in 1-2 weeks Clinical Quality Measures AMI/AHF: ASA po Prior to arrival: Yes ELO RODRIGUEZ Dec 22, 2022 08:52
[2022-12-22] MEDS ORDERED: LISI5TAB20 PO (08:56)
[2022-12-22] MEDS ORDERED: TICA90TA PO (08:56)
[2022-12-22] MEDS ORDERED: ATOR80TA76 PO (08:56)
[2022-12-22] MEDS ORDERED: ASPI81TA64 PO (08:56)
[2022-12-22] MEDS ORDERED: PANT40TA52 PO (08:56)
[2022-12-22] MEDS ORDERED: METO50TA7 PO (08:56)
--- NOTE | 2022-12-22 08:57 | Discharge Inst-Cardiology ---
Discharge Inst-Cardiac Discharge Medications New Medications: Aspirin (Children's Aspirin) 81 Mg Tab.chew 81 MG PO DAILY, #60 TAB 3 Refills Atorvastatin Calcium (Atorvastatin Calcium) 80 Mg Tablet 80 MG PO HS, #30 TAB 5 Refills Lisinopril (Lisinopril) 5 Mg Tablet 5 MG PO DAILY, #30 TAB 5 Refills Metoprolol Succinate (Metoprolol Succinate) 50 Mg Tab.er.24h 50 MG PO DAILY, #30 TAB 5 Refills Pantoprazole Sodium (Pantoprazole Sodium) 40 Mg Tablet.dr 40 MG PO DAILY, #30 TAB 2 Refills Ticagrelor (Brilinta) 90 Mg Tablet 90 MG PO BID, #60 TAB 5 Refills Continued Medications: Acetaminophen (Tylenol Extra Strength) 500 Mg Tablet 1000 MG PO Q8H PRN for PAIN-MILD (1-4), TAB Albuterol Sulfate (Ventolin Hfa) 90 Mcg Hfa.aer.ad 2 PUFF INH Q6H PRN for SHORTNESS OF BREATH, EA Ascorbate Calcium (Vitamin C) 500 Mg Tablet 500 MG PO DAILY, TAB Budesonide (Budesonide) 0.5 Mg/2 Ml Ampul.neb 2 ML NEB BID, EA LAST FILLED JUN 2022 FOR A 30 DAY SUPPLY Carisoprodol (Carisoprodol) 350 Mg Tablet 350 MG PO DAILY PRN for MUSCLE SPASMS, TAB Ergocalciferol (Vitamin D2) (Vitamin D2) 1,250 Mcg (25944 Unit) Capsule 1250 MCG PO EVERY 72 HOURS, CAP Escitalopram Oxalate (Escitalopram Oxalate) 20 Mg Tablet 20 MG PO DAILY, TAB Formoterol Fumarate (Perforomist) 20 Mcg/2 Ml Vial.neb 20 MCG IH BID, EA LAST FILLED JUN 2022 FOR A 30 DAY SUPPLY Guaifenesin (Mucinex) 600 Mg Tab.er.12h 600 MG PO Q12H PRN for CONGESTION, TAB Loratadine (Claritin) 10 Mg Tablet 10 MG PO DAILY PRN for ALLERGY SYMPTOMS, TAB Meloxicam (Meloxicam) 7.5 Mg Tablet 7.5 MG PO BID, TAB Metformin HCl (Metformin HCl ER) 750 Mg Tab.er.24h 750 MG PO DAILY, TAB Multivits,Ca,Min/Iron/FA/Lycop (Centrum Men's Tablet) 8 Mg Iron-200 Mcg-600 Mcg Tablet 1 EACH PO DAILY, TAB Revefenacin (Yupelri) 175 Mcg/3 Ml Vial.neb 175 MCG IH HS, EA LAST FILLED JUN 2022 FOR A 30 DAY SUPPLY Testosterone Cypionate (Testosterone Cypionate) 200 Mg/Ml Vial 1 ML IM EVERY 10 DAYS, ML Discontinued Medications: Amoxicillin/Potassium Clav (Amox Tr-K Clv 875-125 mg Tab) 875 Mg-125 Mg Tablet 1 EA PO BID, TAB FILLED 12-17-2022 #20/10 DAY SUPPLY New, Converted or Re-Newed RX: Transmitted to Pharmacy Patient Instructions Patient Instructions: Please schedule follow up appointment to see Dr. Toussaint in 1-2 weeks Ok to restart Metformin ELO RODRIGUEZ Dec 22, 2022 08:57
[2022-12-22] MEDS ORDERED: RT-BUDESONIDE NEBS 0.5 MG/2ML (PULMICORT) AMP IH SCH (09:00)
[2022-12-22] MEDS ORDERED: NON-FORMULARY MEDICATION 1 EA EA (Escitalopram Oxalate 20 MG) PO SCH (09:00)
--- NOTE | 2022-12-22 10:07 | Progress Note - Hospitalist ---
Subjective HPI/CC On Admission Date Seen by Provider: Dec 22, 2022 Time Seen by Provider: 08:50 Paul Cardenas is a 67 year old male with PMH HTN, T2DM, HLD, obesity, who presented with chest pain and was admitted with STEMI. The pain was radiating to his jaw. He was diaphoretic and nauseous. Cardiology performed emergent left heart catheterization and he was found to have 100% blockage of the right coronary artery and a stent was placed. Upon my exam, he is having no further symptoms. He denies chest pain. He denies shortness of breath. He has been up walking. He has been eating and drinking. He has no complaints. Subjective/Events-last exam He is feeling well. He denies pain. He denies shortness of breath. He has been walking. He has been eating and drinking. He has no complaints. Objective Exam Vital Signs Vital Signs Date Time Temp Pulse Resp B/P (MAP) Pulse Ox O2 Delivery O2 Flow Rate FiO2 12/22/22 08:00 36.3 62 14 143/83 (103) 97 Room Air Capillary Refill : Less Than 3 Seconds General Appearance: No Apparent Distress, Obese Respiratory: Lungs Clear, No Respiratory Distress Cardiovascular: Regular Rate, Rhythm, No Murmur Gastrointestinal: Normal Bowel Sounds, Soft Extremity: Normal Inspection, No Pedal Edema Neurologic/Psychiatric: Alert, No Motor/Sensory Deficits, Normal Mood/Affect Skin: Normal Color, Warm/Dry Results/Procedures Lab Laboratory Tests 12/22/22 05:02 Patient resulted labs reviewed. Imaging: Reviewed Imaging Report Assessment/Plan Assessment and Plan Assess & Plan/Chief Complaint STEMI CAD HTN HLD Obesity T2DM s/p left heart cath with stent to RCA 12/20 ASA, Brilinta, statin, Lisinopril, Toprol Resume home meds Discharging home today Diagnosis/Problems Diagnosis/Problems (1) STEMI (ST elevation myocardial infarction) Status: Acute Qualifiers: Involved coronary artery: right coronary artery Qualified Codes: I21.11 - ST elevation (STEMI) myocardial infarction involving right coronary artery (2) CAD (coronary artery disease) Status: Acute (3) T2DM (type 2 diabetes mellitus) Status: Acute (4) HTN (hypertension) Status: Acute (5) HLD (hyperlipidemia) Status: Acute (6) Obesity Status: Acute Clinical Quality Measures AMI/AHF: ASA po Prior to arrival: Yes ARANZA TUCKER MD Dec 22, 2022 10:07
[2022-12-22 10:31] VITALS: BP 143/83
--- NOTE | 2022-12-22 13:12 | Conscious Sedation/ASA ---
12/22/22 1312: Moderate Sedation PreProcedure ASA Score Airway Lungs Heart ASA score ASA 1: a normal healthy patient ASA 2: a patient with a mild systemic disease (mid diabetes, controlled hypertension, obesity ASA 3: a patient with a severe systemic disease that limits activity (angina, COPD, prior Myocardial infarction) ASA 4: a patient with an incapacitating disease that is a constant threat to life (CHF, renal failure) ASA 5: a moribund patient not expected to survive 24 hrs. (ruptured aneurysm) ASA 6: a declared brain- patient whose organs are being harvested. For emergent operations, add the letter E after the classification Sedation Plan The patient is an appropriate candidate to undergo the planned procedure, sedation, and anesthesia. The patient immediately re-assessed prior to indication. MENDEZ CALLEJAS MD [facility] 12/22/22 1341: Moderate Sedation PreProcedure ASA Score 4 Mallampati Classification Grade 3 Sedation Plan Analgesia, Amnesia, Plan communicated to team members Dec 22, 2022 13:12 MENDEZ CALLEJAS MD [facility] Dec 22, 2022 13:41
--- NOTE | 2022-12-22 13:33 | Progress Note - Cardiology ---
Cardiology SOAP Progress Note Subjective: No leg or groin discomfort or discoloration No focal weakness No n/v/d No shortness of breath No cp or palp or syncope Objective: I&O/Vital Signs 12/22/22 12/22/22 12/22/22 12/22/22 04:17 07:00 07:21 08:00 Temp 36.7 36.3 Pulse 62 56 51 62 Resp 16 14 14 B/P (MAP) 128/84 (99) 143/83 (103) 143/83 (103) Pulse Ox 96 94 97 O2 Delivery NIV CPAP NIV CPAP Room Air 12/22/22 10:31 Pulse 78 Resp 16 B/P (MAP) 143/83 Pulse Ox 96 O2 Delivery Room Air 12/22/22 00:00 Intake Total 1750 ml Output Total 1250 ml Balance 500 ml Side: right Groin site without hematoma: Yes Condition: DP/PT pulses palpable, extremity w/d/p Bruising: mild bruising Constitutional: AAO x 3, well-developed, well-nourished Respiratory: No accessory muscle use; chest expansion is symmetric, chest is bilaterally symmetric, other (fair to good, bilateral air entry) Cardiovascular: regular rate-rhythm, S1 and S2, systolic murmur (soft EVAN at card base) Gastrointestional: No tender; soft; No guarding, No rebound; audible bowel sounds Extremities: No clubbing, No cyanosis, No significant edema Neurologic/Psychiatric: oriented x 3, other (moves all limbs equally) Skin: No rash on exposed areas, No ulcerations on exposed areas Results/Procedures: Labs Laboratory Tests 12/21/22 20:39: Glucometer 102 12/22/22 05:02: White Blood Count 10.1, Red Blood Count 5.36, Hemoglobin 14.9, Hematocrit 46, Mean Corpuscular Volume 85, Mean Corpuscular Hemoglobin 28, Mean Corpuscular Hemoglobin Concent 33, Red Cell Distribution Width 13.7, Platelet Count 280, Mean Platelet Volume 9.1, Sodium Level 138, Potassium Level 3.7, Chloride Level 109H, Carbon Dioxide Level 21, Anion Gap 8, Blood Urea Nitrogen 16, Creatinine 0.77, Estimat Glomerular Filtration Rate 98, BUN/Creatinine Ratio 21, Glucose Level 98, Calcium Level 8.8 Microbiology 12/20/22 MRSA Screen - Final, Complete MRSA not isolated Laboratory Tests 12/21/22 04:52 12/21/22 05:03 12/22/22 05:02 A/P: Assessment: Ac inf wall STEMI treated with primary PCI (see below) CAD - LAD 50-60% mid LAD, 50-60% prox D1, mild plaque LCx, RCA 100% distal with LORENZO 0 flow treated with Skypoint 3.0 x 18 YUMIKO deployed at 18 atmospheres with 0% residual and LORENZO 3 flow; very distal RCA has 50% stenosis - Basal inferior hypokinesis, LVEF 50%, LVEDP 15 mmHg DM II BMI approx 39 and obesity-hypovent and ABDOULAYE Hyperlipidemia - statin tx Hypertension Plan: * Continue DAPT, BB, MELO-inhibitor and Statin * Management of DM II and other medical issues has been by the Hospitalist service * I discussed in detail with him his cath findings, interventions undertaken, and future treatment plan; also reviewed risk factor mod * Ok to discharge home today on current medication regimen * Outpt f/u in 1-2 weeks Clinical Quality Measures AMI/AHF: ASA po Prior to arrival: Yes MENDEZ CALLEJAS MD FACP FAC CCDS Dec 22, 2022 13:32
--- NOTE | 2022-12-22 13:35 | Cardiology Discharge Summary ---
Diagnosis/Chief Complaint Date of Admission Dec 20, 2022 at 12:16 Date of Discharge Dec 22, 2022 at 10:31 Final/Discharge Diagnosis Ac inf wall STEMI treated with primary PCI (see below) CAD - LAD 50-60% mid LAD, 50-60% prox D1, mild plaque LCx, RCA 100% distal with LORENZO 0 flow treated with Skypoint 3.0 x 18 YUMIKO deployed at 18 atmospheres with 0% residual and LORENZO 3 flow; very distal RCA has 50% stenosis - Basal inferior hypokinesis, LVEF 50%, LVEDP 15 mmHg DM II BMI approx 39 and obesity-hypovent and ABDOULAYE Hyperlipidemia - statin tx Hypertension Chief Complaint/HPI Chief Complaint/HPI 67 yo man with multiple cor risk factors (DM II, htn, hl) who presented with sudden onset of midsternal chest pain, severe, radiating to shoulders and neck, associated with diaphoresis and some shortness of breath, never experienced before, w/o aggravating or relieving factors, diagnosed in the ER as acute inf wall STEMI. We proceeded with emergency cath/PCI after having spoken with the patient Dr Solis managed patient's diabetes during this hosp For condition at discharge, please refer to our progress note of 12/22/22 Discharge Summary Discussion & Recommendations Home Medications Reviewed patient Home Medication Reconciliation performed by pharmacy medication reconciliations medtronics technician and/or nursing. Patients Allergies have been reviewed. Discharge Home Medications: Reviewed and agree with Discharge Medication list on patient's Discharge Instruction sheet Clinical Quality Measures AMI/AHF: ASA po Prior to arrival: Yes MENDEZ CALLEJAS MD FACP FAC CCDS Dec 22, 2022 13:35
== END 2022-12-22 10:31 | disposition home or self-care (01) | DRG 249 ==
LOC: EDUNIT# 10:45 → ER 10:46 → SDC 11:02 → ICU 12:16
PROVIDERS: ADMIT Internal Medicine Cardiovascular Disease; ATTEND Internal Medicine Cardiovascular Disease
PROC: 4A023N7 Measurement of Cardiac Sampling and Pressure, Left Heart, Percutaneous Approach (ICD-10-PCS; principal; 2022-12-20)
PROC: B2111ZZ Fluoroscopy of Multiple Coronary Arteries using Low Osmolar Contrast (ICD-10-PCS; 2022-12-20)
PROC: 02703DZ Dilation of Coronary Artery, One Artery with Intraluminal Device, Percutaneous Approach (ICD-10-PCS; 2022-12-20)
PROC: B2151ZZ Fluoroscopy of Left Heart using Low Osmolar Contrast (ICD-10-PCS; 2022-12-20)
DX: I21.19 ST elevation (STEMI) myocardial infarction involving other coronary artery of inferior wall (principal); I25.10 Atherosclerotic heart disease of native coronary artery without angina pectoris; E11.9 Type 2 diabetes mellitus without complications; G47.33 Obstructive sleep apnea (adult) (pediatric); I25.82 Chronic total occlusion of coronary artery; E78.5 Hyperlipidemia, unspecified; I10 Essential (primary) hypertension; E66.9 Obesity, unspecified; D75.1 Secondary polycythemia; R09.02 Hypoxemia; Z79.52 Long term (current) use of systemic steroids; Z79.899 Other long term (current) drug therapy; Z68.38 Body mass index [BMI] 38.0-38.9, adult
CPT/HCPCS: 36415; 71045; 80048; 80053; 80061; 82947; 83735; 83874; 84443; 84484; 85025; 85027; 85610; 85730; 87081; 93005; 93306; 93458

== ENCOUNTER → 2023-01-05 | Outpatient (CLI) | payer MEDICARE ==
[~2023-01-05] MED LIST: ACET-2267 PO; ALBU18HF2 INH; AMOX1TAB12 PO; ASCO-262 PO; ASPI81TA64 PO; ATOR80TA76 PO; BUDE0.5A NEB; CARI350T27 PO; ERGO1250 PO; ESCI20TA39 PO; FORM20VI IH; GUAI600T43 PO; LISI5TAB20 PO; LORA10TA76 PO; MELO7.5T46 PO; METF750T45 PO; METO50TA7 PO; MULT-1030 PO; PANT40TA52 PO; REVE175V IH; TEST200V21 IM; TICA90TA PO
[2023-01-05 07:42] LABS: CALCIUM 9.4 MG/DL (8.5-10.1)
[2023-01-05 07:47] LABS: CREATININE SERUM 0.93 MG/DL (0.60-1.30)
== END ==
LOC: LAB 07:09
PROVIDERS: ATTEND Nurse Practitioner Family
DX: I10 Essential (primary) hypertension (principal)
CPT/HCPCS: 36415; 80048

== ENCOUNTER → 2023-02-23 | Outpatient (RCR) | payer MEDICARE | END | disposition home or self-care (01) | LOC: CR 02-09 07:54 | PROVIDERS: ATTEND Internal Medicine Cardiovascular Disease | DX: Z29.8 Encounter for other specified prophylactic measures (principal); I21.9 Acute myocardial infarction, unspecified | CPT/HCPCS: 93798 ==

== ENCOUNTER → 2023-03-07 | Outpatient (CLI) | payer MEDICARE ==
[2023-03-07 09:36] LABS: ALBUMIN 4.2 GM/DL (3.2-4.5); BILIRUBIN,TOTAL 0.5 MG/DL (0.1-1.0); CALCIUM 9.1 MG/DL (8.5-10.1); TOTAL PROTEIN 6.5 GM/DL (6.4-8.2)
== END ==
LOC: LAB 09:07
PROVIDERS: ATTEND Nurse Practitioner Family
DX: E78.5 Hyperlipidemia, unspecified (principal)
CPT/HCPCS: 36415; 80053

== ENCOUNTER → 2023-03-25 | Outpatient (RCR) | payer MEDICARE | END | disposition home or self-care (01) | LOC: CR 02-25 14:53 | PROVIDERS: ATTEND Internal Medicine Cardiovascular Disease | DX: Z29.8 Encounter for other specified prophylactic measures (principal); I21.9 Acute myocardial infarction, unspecified; Z95.5 Presence of coronary angioplasty implant and graft | CPT/HCPCS: 93798 ==

== ENCOUNTER → 2023-04-06 | Outpatient (CLI) | payer MEDICARE ==
[2023-04-06 08:49] LABS: CHOLESTEROL 110 MG/DL (< 200); HDL CHOLESTEROL 33 MG/DL (40-60); TRIGLYCERIDES 85 MG/DL (<150); VLDL CHOLESTEROL 17 MG/DL (5-40)
== END ==
LOC: LAB 08:07
PROVIDERS: ATTEND Nurse Practitioner Family
DX: I25.2 Old myocardial infarction (principal); I25.10 Atherosclerotic heart disease of native coronary artery without angina pectoris; E78.2 Mixed hyperlipidemia; I10 Essential (primary) hypertension
CPT/HCPCS: 36415; 80061

== ENCOUNTER → 2023-04-25 | Outpatient (RCR) | payer MEDICARE | END | disposition home or self-care (01) | LOC: CR 03-28 08:09 | PROVIDERS: ATTEND Internal Medicine Cardiovascular Disease | DX: Z29.8 Encounter for other specified prophylactic measures (principal); I21.9 Acute myocardial infarction, unspecified; Z95.5 Presence of coronary angioplasty implant and graft | CPT/HCPCS: 93798 ==

== ENCOUNTER 2023-05-20 08:05 | Outpatient (RCR) | payer MEDICARE | END 2023-05-26 | disposition home or self-care (01) | LOC: CR 08:05 | PROVIDERS: ATTEND Internal Medicine Cardiovascular Disease | DX: Z29.8 Encounter for other specified prophylactic measures (principal); I21.9 Acute myocardial infarction, unspecified; Z95.5 Presence of coronary angioplasty implant and graft | CPT/HCPCS: 93798 ==

== ENCOUNTER → 2023-07-22 | Outpatient (CLI) | payer MEDICARE | LOC: CARD 08:30 | PROVIDERS: ATTEND Internal Medicine Cardiovascular Disease | DX: I51.7 Cardiomegaly (principal); I34.0 Nonrheumatic mitral (valve) insufficiency | CPT/HCPCS: 93306 ==